=== PATIENT | male | born 1955 | race Caucasian/White ===

== ENCOUNTER 2022-12-11 07:51 | Outpatient (CLI) | payer OTHER | END 2022-12-11 07:53 | disposition home or self-care (01) | LOC: NUCLEAR 07:51 | PROVIDERS: ATTEND Internal Medicine | DX: I25.10 Atherosclerotic heart disease of native coronary artery without angina pectoris (principal); I11.9 Hypertensive heart disease without heart failure; E78.2 Mixed hyperlipidemia ==